=== PATIENT | male | born 1990 | race Caucasian/White ===

== ENCOUNTER 2018-09-20 21:03 | Emergency (ER) | payer SELFPAY ==
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
[2018-09-20] MEDS ORDERED: KETOROLAC 30 MG/ML VIAL IM ONE (21:49)
--- NOTE | 2018-09-22 21:13 | RADIOLOGY REPORT ---
EXAM: FEMUR, RIGHT HISTORY: INJURY. TECHNIQUE: Multiple views of the right femur are provided. FINDINGS: There is no radiographic evidence of a fracture or dislocation of the right femur. No significant soft tissue abnormalities are identified. Subtle punctate radiopaque densities are identified in the region of the soft tissue overlying the right hip, however, I suspect this finding likely represents an overlying artifact. IMPRESSION: NO RADIOGRAPHIC EVIDENCE OF AN ACUTE FRACTURE OR DISLOCATION OF THE RIGHT FEMUR. JOB NUMBER: [id number] [facility]
--- NOTE | 2018-09-22 21:44 | RADIOLOGY REPORT ---
EXAM: KNEE, RIGHT 3 VIEWS HISTORY: INJURY. TECHNIQUE: Multiple views of the right knee are provided without comparison examinations. FINDINGS: There is no radiographic evidence of a fracture or dislocation of the right knee. No significant soft tissue abnormalities are visualized. No radiopaque foreign bodies are identified. No significant suprapatellar bursal fluid is identified. IMPRESSION: NO RADIOGRAPHIC EVIDENCE OF AN ACUTE PROCESS INVOLVING THE RIGHT KNEE. JOB NUMBER: [id number] [facility]
== END 2018-09-20 23:22 | disposition home or self-care (01) ==
LOC: ER 21:03
DX: S89.91XA Unspecified injury of right lower leg, initial encounter (principal); M79.651 Pain in right thigh; X50.3XXA Overexertion from repetitive movements, initial encounter; F17.210 Nicotine dependence, cigarettes, uncomplicated
CPT/HCPCS: 99283; 96372; 99284; 73552; 73562; J1885